=== PATIENT | female | born 1995 ===

== ENCOUNTER 2016-10-07 13:22 | Emergency (ER) | payer OTHER ==
[2016-10-07 13:29] VITALS: TEMP 97.7; O2SAT 98
--- NOTE | 2016-10-07 13:51 | C.PDOC ---
History Of Present Illness 21 year old patient presents to the ED complaining of right upper arm, shoulder , right rib, and neck pain s/p fall from yesterday. Patient is unable to lift shoulder due to pain. Patient reports there is no relief with Tylenol that she took prior to arrival. SP FALL YEST CO R UPPER ARM, SHOULDER, R RIB AND NECK PAIN. UNABLE TO LIFT SHOULDER DUE TO PAIN. NO RELIEF W [employer]CH[employer]. EXAM MILD DIST NONTOX EXT LIMITED ROM R SHOULDER NO GROSS DEFORM. DIFF TEND SHOULDER, HUMERUS, UPPER R SHOULDER. SKIN INTACT NEURO NO FOCAL DEF - HPI Time Seen by Provider: 10/07/16 13:47 Chief Complaint (Nursing): Upper Extremity Problem/Injury History Per: Patient History/Exam Limitations: no limitations Onset/Duration Of Symptoms: Days (yesterday) Location Of Injury: Right: Arm (upper), Chest (right rib), Neck, Shoulder Severity: Mild Pain Scale Rating Of: 3 Recent travel outside of the [place]: No - Fall Fall:Prior To Injury: Tripped Past Medical History Reviewed: Historical Data, Nursing Documentation, Vital Signs Vital Signs: Last Vital Signs Temp 97.7 F 10/07/16 13:25 Pulse 78 10/07/16 14:23 Resp 16 10/07/16 14:23 BP 125/85 10/07/16 14:23 Pulse Ox 98 10/07/16 14:23 Family History: States: Unknown Family Hx - Social History Hx Alcohol Use: Yes Hx Substance Use: No - Immunization History Hx Influenza Vaccination: No Hx Pneumococcal Vaccination: No Review Of Systems Except As Marked, All Systems Reviewed And Found Negative. Musculoskeletal: Positive for: Neck Pain (right), Shoulder Pain (right), Arm Pain (right upper), Other (right rib pain) Neurological: Negative for: Weakness, Numbness Physical Exam - Physical Exam Appears: Non-toxic, Other (mild distress) Skin: Warm, Dry Chest: Symmetrical Cardiovascular: Rhythm Regular Respiratory: Normal Breath Sounds, No Rales, No Rhonchi, No Wheezing Back: Normal Inspection Extremity: Normal ROM, Capillary Refill (<2 seconds), No Deformity, No Swelling , Other (right shoulder: limited ROM. no gross deformity. diffuse tenderness to right shoulder, right humerus and upper right shoulder) Neurological/Psych: Oriented x3, Normal Speech, Normal Cognition, Normal Motor, Normal Sensation Gait: Steady ED Course And Treatment O2 Sat by Pulse Oximetry: 98 (room air) Pulse Ox Interpretation: Normal - Radiology CXR: Interpreted by Me CXR Interpretation: Yes: No Acute Disease - Other Rad R SHOULDER X-Ray: Interpreted by Me (NEG) R HUMERUS X-Ray: Interpreted by Me (NEG) R RIBS X-Ray: Interpreted by Me (NEG) Disposition Counseled Patient/Family Regarding: Studies Performed, Diagnosis, Need For Followup, Rx Given - Disposition Referrals: YOUR,PMD [Other] Disposition: HOME/ ROUTINE Disposition Time: 14:11 Condition: IMPROVED Additional Instructions: REMOVE PATCH 12 HOURS AFTER INITIAL APPLICATION. Prescriptions: Cyclobenzaprine [Flexeril] 10 mg PO TID #15 tab Ibuprofen [Motrin] 600 mg PO Q6 #30 tab Lidocaine 5% [Lidoderm] 1 ea TD PRN PRN #10 patch PRN Reason: Pain, Moderate (4-7) Instructions: Rotator Cuff Injury (ED) Forms: Work Excuse - Clinical Impression Clinical Impression: Shoulder strain - Scribe Statement The provider has reviewed the documentation as recorded by the Scribe Anita Thacker Provider Attestation: All medical record entries made by the Scribe were at my direction and personally dictated by me. I have reviewed the chart and agree that the record accurately reflects my personal performance of the history, physical exam, medical decision making, and the department course for this patient. I have also personally directed, reviewed, and agree with the discharge instructions and disposition.
[2016-10-07] MEDS ORDERED: Lidocaine 5% Patch TD STA (13:53)
[2016-10-07] MEDS ORDERED: Lidocaine 5% Patch TD ONE (14:01)
[2016-10-07 14:24] VITALS: BP 125/85; PULSE 78; RESP 16
--- NOTE | 2016-10-07 14:37 | RAD ---
PROCEDURE: Radiographs of the Right Shoulder HISTORY: TRAUMA COMPARISON: No prior. FINDINGS: BONES: Normal. No fracture. JOINTS: Normal. Glenohumeral and acromioclavicular joints preserved. No osteoarthritis. SOFT TISSUES: Normal. OTHER FINDINGS: None. IMPRESSION: No evidence of acute fracture or dislocation.
--- NOTE | 2016-10-07 14:37 | RAD ---
PROCEDURE: Radiographs of the right humerus. HISTORY: TRAUMA COMPARISON: None. FINDINGS: BONES: Normal. No fracture or focal lesion. SOFT TISSUES: Normal. OTHER FINDINGS: None. IMPRESSION: No evidence of acute fracture or dislocation.
--- NOTE | 2016-10-07 15:21 | RAD ---
PROCEDURE: Chest right rib series [id number] HISTORY: TRAUMA COMPARISON: None available. TECHNIQUE: Frontal radiograph of the chest and multiple oblique radiographs of the right ribs were obtained. FINDINGS: RIGHT RIBS: No definitive evidence of acute rib fracture seen however note that the medial margins of the posterior ribs have been excluded from the film (series 4, image number 1) and there is any concern, repeat radiograph in this position could be performed. Note that these findings were discussed with Dr. Hernandez at approximately 3:18 p.m. with written down and read back verification. LUNGS: Poor inspiration with low lung volumes, mild crowded bronchovascular markings and mild bibasilar atelectasis. PLEURA: No pneumothorax or pleural fluid. CARDIOVASCULAR: Heart size normal. No evidence of pulmonary vascular congestion. OTHER FINDINGS: None. IMPRESSION: Poor inspiration with low lung volumes, mild crowded bronchovascular markings and mild bibasilar atelectasis. No definitive evidence of acute rib fracture seen however note that the medial margins of the posterior ribs have been excluded from the film (series 4, image number 1) and there is any concern, repeat radiograph in this position could be performed. Note that these findings were discussed with Dr. Hernandez at approximately 3:18 p.m. with written down and read back verification.
== END 2016-10-07 14:23 | disposition home or self-care (01) ==
LOC: C.ER 13:22
DX: S46.911A Strain of unspecified muscle, fascia and tendon at shoulder and upper arm level, right arm, initial encounter (principal); W01.0XXA Fall on same level from slipping, tripping and stumbling without subsequent striking against object, initial encounter
CPT/HCPCS: 71101; 73030; 73060; 96372; 99283; J1885